=== PATIENT | male | born 1985 | race Caucasian/White ===

== ENCOUNTER 2019-10-09 15:23 | Emergency (ER) | payer MEDICAID ==
[~2019-10-09] VITALS: Ht 172.7 cm; Wt 28.1 kg
[2019-10-09] MEDS ORDERED: morphine 4 MG/ML inj SYRINge IV ONE (15:55)
[2019-10-09] MEDS ORDERED: ondansetron/PF 4mg/2ml inj IV ONE (15:55)
--- NOTE | 2019-10-09 15:57 | NUR ---
PT TO CT
[2019-10-09 16:02] LABS: BASOPHILS # (AUTO) 0.1 X10'3 (0-0.2); BASOPHILS % (AUTO) 0.5 % (0-1); EOSINOPHILS % (AUTO) 0.2 % (0-6); HEMATOCRIT 49.7 % (42.0-52.0); HEMOGLOBIN 16.6 g/dl (14.0-17.9); LYMPHOCYTES # (AUTO) 1.3 X10'3 (1.1-4.8); LYMPHOCYTES % (AUTO) 8.9 % (21-51); MEAN CORPUSCULAR HEMOGLOBIN 31.2 PG (27.0-31.0); MEAN CORPUSCULAR HGB CONC 33.4 g/dL (33.0-36.5); MEAN CORPUSCULAR VOLUME 93.4 FL (78-98); MEAN PLATELET VOLUME 7.3 FL (7.4-10.4); MONOCYTES # (AUTO) 1.1 X10'3 (0-0.9); MONOCYTES % (AUTO) 7.7 % (2-12); NEUTROPHILS # (AUTO) 12.2 X10'3 (1.8-7.7); NEUTROPHILS % (AUTO) 82.7 % (42-75); PLATELET COUNT 353 X10'3 (140-440); RED BLOOD COUNT 5.32 X10'6 (4.70-6.10); WHITE BLOOD COUNT 14.8 X10'3 (4.5-11.0)
[2019-10-09] MEDS ORDERED: clindamycin 150mg capsule PO ONE (16:10)
[2019-10-09 16:12] LABS: ALANINE AMINOTRANSFERASE 22 U/L (12-78); ALBUMIN 3.8 G/DL (3.4-5.0); ALBUMIN/GLOBULIN RATIO 0.9 (1.1-1.5); ALKALINE PHOSPHATASE 75 IU/L (46-116); ANION GAP 7 (8-16); ASPARTATE AMINO TRANSFERASE 19 U/L (10-37); BILIRUBIN,TOTAL 0.5 MG/DL (0.1-1.0); BLOOD UREA NITROGEN 11 MG/DL (7-18); BUN/CREATININE RATIO 11.8 (5.4-32.0); CALCIUM 9.2 MG/DL (8.5-10.1); CHLORIDE 104 MMOL/L (99-107); CREATININE 0.93 MG/DL (0.60-1.10); GLUCOSE 125 MG/DL (70-104); POTASSIUM 3.6 MMOL/L (3.5-5.1); SODIUM 138 MMOL/L (135-145); TOTAL CARBON DIOXIDE 26.7 MMOL/L (24-32); eGFR > 90 ML/MIN
--- NOTE | 2019-10-09 16:25 | NUR ---
Pt returned from CT
[2019-10-09] MEDS ORDERED: LIDOcaine 1% W/epiNEPHrine 1:200,000 10ml vial IJ ONE (16:40)
[2019-10-09] MEDS ORDERED: TETanus/Pertussis (Acell)/Diphther VAC/PF (Tdap-Adult) 0.5ml syringe IMVAC ONE (16:40)
[2019-10-09 16:58] LABS: TROPONIN I < 0.04 NG/ML (0.0-0.05)
[2019-10-09] MEDS ORDERED: CLIN150C2 PO (18:18)
[2019-10-09 18:31] VITALS: BP 113/69
== END 2019-10-09 18:44 | disposition home or self-care (01) ==
LOC: ER 15:23
DX: S01.111A Laceration without foreign body of right eyelid and periocular area, initial encounter (principal); M25.532 Pain in left wrist; H53.8 Other visual disturbances; F12.90 Cannabis use, unspecified, uncomplicated; R40.4 Transient alteration of awareness; Z88.0 Allergy status to penicillin; V80.918A Animal-rider injured in other transport accident, initial encounter; Y93.I9 Activity, other involving external motion; Y92.89 Other specified places as the place of occurrence of the external cause; Y99.9 Unspecified external cause status
CPT/HCPCS: 12013; 36415; 70450; 70486; 72125; 73110; 80053; 84484; 85025; 85610; 90471; 90715; 93005; 96374; 96375; 99285; J2270; J2405

== ENCOUNTER 2020-07-13 14:59 | Emergency (ER) | payer MEDICAID ==
[~2020-07-13] VITALS: Ht 172.7 cm; Wt 68.2 kg
[2020-07-13 15:16] VITALS: BP 132/83
== END 2020-07-13 16:20 | disposition home or self-care (01) ==
LOC: ER 15:00
DX: K42.9 Umbilical hernia without obstruction or gangrene (principal); F12.90 Cannabis use, unspecified, uncomplicated; Z72.89 Other problems related to lifestyle; Z88.0 Allergy status to penicillin
CPT/HCPCS: 99281

== ENCOUNTER 2021-03-08 07:46 | Emergency (ER) | payer MEDICAID ==
[~2021-03-08] VITALS: Ht 170.2 cm; Wt 64.2 kg
[2021-03-08 07:57] VITALS: BP 118/73
== END 2021-03-08 09:33 | disposition home or self-care (01) ==
LOC: ER 07:46
DX: M25.511 Pain in right shoulder (principal); F12.90 Cannabis use, unspecified, uncomplicated; Z72.89 Other problems related to lifestyle; Z88.0 Allergy status to penicillin
CPT/HCPCS: 73030; 99283